=== PATIENT | male | born 1975 | race Caucasian/White ===

== ENCOUNTER 2017-05-07 19:18 | Emergency (ER) | payer OTHER ==
[~2017-05-07] VITALS: Ht 180.3 cm; Wt 90.7 kg
[~2017-05-07 19:18] MED LIST: AUGMENTIN 875875 MG PO; BENADRYL ALLERG25 MG PO; CELEXA40 MG PO; CHANTIX0.5 MG PO; CIPROFLOXACIN500 M1 PO; CLINDAMYCIN HC150 MG PO; DEXAMETHASONE 22 MG PO; DILAUDID 4 MG TA4 M1 PO; DOXYCYCLINE 10100 M2 PO; DOXYCYCLINE HY100 M3 PO; ENBREL 25 MG KI25 M1 SUBQ; FLEXERIL PO; FLONASE16 GM; FOLIC ACID0.8 MG PO; FOSAMAX 70 MG T70 MG PO; IBUPROFEN 600600 M1 PO; IBUPROFEN 800800 MG PO; KEFLEX500 MG PO; LEXAPRO 10 MG T10 M2 PO; LISINOPRIL10 MG PO; MEN'S MULTI-VI1 EACH PO; METHOTREXATE 22.5 M1 PO; NAPROSYN500 MG PO; NEXIUM20 MG; NORCO 10-325 T1 EACH PO; NORCO 5-325 TA1 EACH PO; OMEGA 3 1,0001 EACH PO; PERCOCET 5-3251 EACH PO; PHENERGAN 25 MG25 M1 PO; PRILOSEC40 MG PO; REMICADE 1100 MG/VIA IV; SEROQUEL 100 M100 M1 PO; SEROQUEL200 MG PO; TYLENOL325 MG PO; VALIUM5 MG PO; VENTOLIN HFA 1818 GM INH; VITAMIN D5000 UNIT PO; XANAX 0.5 MG0.5 M1 PO; XANAX 0.5 MG0.5 MG PO; ZESTRIL10 MG PO; ZOFRAN ODT4 MG PO; ZPAK PO
[2017-05-07] MEDS ORDERED: AUGMENTIN 875-1 EACH PO (19:49)
[2017-05-07] MEDS ORDERED: MOBIC7.5 MG PO (19:49)
== END 2017-05-07 20:10 | disposition home or self-care (01) ==
LOC: ER 19:18
DX: S81.802A Unspecified open wound, left lower leg, initial encounter (principal); L40.50 Arthropathic psoriasis, unspecified; I10 Essential (primary) hypertension; G43.909 Migraine, unspecified, not intractable, without status migrainosus; F41.9 Anxiety disorder, unspecified; F17.210 Nicotine dependence, cigarettes, uncomplicated; Z86.14 Personal history of Methicillin resistant Staphylococcus aureus infection; Z88.8 Allergy status to other drugs, medicaments and biological substances; W54.0XXA Bitten by dog, initial encounter; Y93.89 Activity, other specified; Y92.89 Other specified places as the place of occurrence of the external cause; Y99.8 Other external cause status

== ENCOUNTER → 2017-11-03 | Outpatient (CLI) | payer OTHER ==
[~2017-11-03] MED LIST changes: +AMLODIPINE BESY10 MG PO; +AUGMENTIN 875-1 EACH PO; +BENTYL 10 MG CA10 M1 PO; +MOBIC7.5 MG PO; +PREDNISONE 10 M10 MG PO; +SEROQUEL 50 MG50 M1 PO; +TREMFYA100 MG/1 M SUBQ
== END ==
LOC: NUC 09:06
DX: M85.88 Other specified disorders of bone density and structure, other site (principal); Z79.52 Long term (current) use of systemic steroids

== ENCOUNTER 2018-10-30 06:40 | Inpatient (IN) | payer OTHER ==
[~2018-10-30] VITALS: Ht 180.3 cm; Wt 97.5 kg
[2018-10-30 06:40] VITALS: BP 135/95
[2018-10-30] MEDS ORDERED: DUPIXENT300 MG/2 M (06:54)
[2018-10-30 07:17] LABS: HEMATOCRIT 41.8 % (42.0-52.0); HEMOGLOBIN 14.2 gm/dL (14.0-18.0); MCH 31.7 pg (26.0-34.0); MCV 93.2 fL (80.0-100.0); PLATELET COUNT 237 thou/uL (150-400); RBC 4.49 mil/uL (4.50-6.00); RDW 14.1 % (10.5-14.5); WBC 14.9 thou/uL (4.0-11.0)
[2018-10-30 07:24] LABS: ANION GAP 11 mmol/L (7-16); BUN 17 mg/dL (7-18); CALCIUM 8.7 mg/dL (8.5-10.1); CHLORIDE 102 mmol/L (98-107); CO2 26 mmol/L (21-32); CREATININE 1.2 mg/dL (0.7-1.3); GLUCOSE 86 mg/dL (74-106); SODIUM 139 mmol/L (136-145)
[2018-10-30 07:31] LABS: PROTIME 9.3 Seconds (9.3-11.4); TROPONIN-I <0.06 ng/mL (<0.06)
[2018-10-30 07:33] LABS: APTT 20.5 Seconds (24.5-32.8)
[2018-10-30 08:00] LABS: ABSOLUTE NEUTROPHILS 12.8 thou/uL (1.4-8.2)
[2018-10-30 09:59] LABS: AMP/METHAMP Negative (Negative); BARBITURATES Negative (Negative); BENZODIAZEPINES POSITIVE (Negative); COCAINE Negative (Negative); METHADONE Negative (Negative); OPIATES Negative (Negative); PCP Negative (Negative)
[2018-10-30 10:43] VITALS: BP 132/89
[2018-10-30 11:25] VITALS: BP 139/97
[2018-10-30 12:08] LABS: ALBUMIN 3.7 g/dL (3.4-5.0); DIRECT BILIRUBIN < 0.1 mg/dL (<0.1-0.3); SGOT 16 U/L (15-37); SGPT 24 U/L (30-65); TOTAL BILIRUBIN < 0.1 mg/dL (<0.1-1.0); TOTAL PROTEIN 7.2 g/dL (6.4-8.2)
--- NOTE | 2018-10-30 14:32 | NUR ---
PT ARRIVED TO UNIT, POST EGD, AT APPROX 1320. AT APPROX 1400 PT HAD DISCONNECTED HIMSELF FROM IV MED, VITALS MACHINE AND WAS FULLY DRESSED. CHARGE NURSE MAGGIE AND I WENT INTO ROOM AND PT STATED HE WAS GOING TO HAVE A SMOKE. WE TOLD PT HE COULD HAVE A NICOTINE PATCH, BUT HOSPITAL HAD NO SMOKING POLICY. I ASKED PT TO GO BACK TO BED AND I TOLD HIM HE CAN NOT DISCONNECT HIMSELF FROM IV MED DUE TO INFECTION RISK (TUBING OPEN AND ON BED) AND MEDICATION NEEDS TO BE INFUSED FOR BENIFIT. PT STATED THAT THE IV MED, PROTONICS NEVER WORKED FOR HIM BEFORE. PREVIOUSLY PT HAD BEEN DISPLAYING SIMILAR BEHAVIOR IN EMERGENCY ROOM REPORTED BY CINTIA CAMACHO. I LEFT THE ROOM AND CALLED SECURITY FOR ASSISTANCE (STAND BY ONLY) AND I DISCUSSED WITH MR DIAL, HIS PT RESPONSIBILITIES. I INFORMED PT THAT THE HOSPITAL (AND SURROUNDING CAMP[facility]) HAS A NO SMOKING POLICY. I ASKED MR DIAL IF HE WOULD TRUST US AND LET US TREAT HIM. I OFFERED THAT HE COULD TALK TO THE ATTENDING PHYSICIAN ABOUT HIS TREATMENT PLAN. I TOLD HIM THAT IF HE LEFT IT WOULD BE AGAINST MEDICAL ADVICE. I ALSO LET HIM KNOW THAT I COULD CONTACT CASE MANAGEMENT IF HE HAD PROBLEMS AT HOME. I GAVE THE PATIENT SOME TIME TO THINK (ABOUT 15 MINS) AND WENT BACK TO HIS ROOM. HE WAS GETTING DRESSED AND DECIDED TO LEAVE. HE WILLINGLY SIGNED AMA PAPERWORK. HE STATED THAT HE NEEDED TO TAKE CARE OF HIS DOG. DR. BAUTISTA, RONNIE ZAMORA, BHASKAR PRATT NOTIFIED. PT LEFT UNIT AT APPROX 1445.
--- NOTE | 2018-10-30 15:02 | NUR ---
ORDERS RECEIVED FOR EVAL AND TREAT HOWEVER Pt LEFT THE HOSPITAL PRIOR TO BEING SEEN
[2018-10-30] MEDS ORDERED: CARAFATE 1 GM TA1 GM PO (16:55)
[2018-10-30] MEDS ORDERED: HYDROCODONE-ACE15 ML PO (16:55)
[2018-10-30] MEDS ORDERED: SENNA-DOCUSATE1 EAC1 PO (16:55)
[2018-10-30] MEDS ORDERED: ZOFRAN ODT4 MG PO (16:55)
[2018-10-30] MEDS ORDERED: PROTONIX40 MG PO (16:55)
--- NOTE | 2018-10-30 17:04 | EKG ---
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: ALEX : 1975 Requested By: Gustavo Iglesias Order Number: [id number] MD: Deshaun Alan Measurements Intervals Jean Rate: 87 P: 9 WA: 145 QRS: 7 QRSD: 84 T: 22 QT: 363 QTc: 437 Interpretive Statements Sinus rhythm No significant abnormality Compared to ECG 07/26/2014 13:18:24 Sinus tachycardia no longer present Electronically Signed On 10-30-2018 17:04:08 CDT by Deshaun Alan [email or web address] ��������������������������������������������� <ELECTRONICALLY SIGNED> ���������������������������������������� By: Deshaun Alan MD, [facility] ��������������������������������������������� 10/30/18 1704 0647 Deshaun Alan MD, FAC /EPI
--- NOTE | 2018-11-02 10:06 | PATH ---
[facility] [place] [address] PATHOLOGY RPT PROCEDURE Name: JESSEANDREWSHECTOR MASON Room #: 211-P DIS IN M.R.#: [id number] ������������������ Admission: 10/30/18 ������������������ Date of : 75 Discharge: 10/30/18 Report #: [id number] Path Case #: [id number] [facility] Accession Number: [id number] . 01 Material submitted: . ANTRUM BIOPSIES R/O H PYLORI . 01 Clinical history: . Pre-OP DX: Melena, coffee-ground emesis Post-OP DX: Hiatal hernia, gastritis, esophagitis . 02 Diagnosis: Gastric mucosa, antrum rule out H. pylori, endoscopic biopsy: - Mild to moderate reactive gastropathy. - Negative for intestinal metaplasia. - Negative for Helicobacter pylori (properly controlled immunohistochemical stain performed). (IUV:dori; 10/31/2018) MBR/10/31/2018 . 02 Electronically signed: . Jeanie Camacho MD, Pathologist NPI- [id number] . 01 Gross description: . Received in formalin labeled "Hector Dial, antrum biopsies, rule out H. pylori," is a single segment of sin soft tissue measuring 0.6 cm in maximum dimension. The specimen is entirely submitted in cassette A1. After filtration of the specimen container, no additional tissue was recovered. (TSD; 10/30/2018) TOB/TOB . 02 Pathologist provided ICD-10: K31.9 . 02 CPT . 573071, T47441 Specimen Comment: A courtesy copy of this report has been sent to Specimen Comment: [phone], . Specimen Comment: Report sent to / DR BAUTISTA Specimen Comment: A duplicate report has been generated due to demographic updates. Performed at: [address], [place], [place] [id number] MD Amandeep Lawson MD Phone: [phone] [address] [address] PATHOLOGY RPT PROCEDURE Name: HECTOR DIAL MASON Room #: 211-P DIS IN M.R.#: [id number] ������������������ Admission: 10/30/18 ������������������ Date of : 75 Discharge: 10/30/18 Report #: [id number] Path Case #: [id number] Performed at: [address] [facility] [address] [id number] MD Jeanie Camacho MD Phone: [phone]
== END 2018-10-30 17:48 | disposition left against medical advice (07) | DRG 382 ==
LOC: ER 06:40 → EROBS 09:20 → 2N 12:22
PROVIDERS: Emergency Medicine; Nurse Practitioner; ADMIT Internal Medicine
PROC: 0DB68ZX Excision of Stomach, Via Natural or Artificial Opening Endoscopic, Diagnostic (ICD-10-PCS; principal; 2018-10-30)
DX: K22.11 Ulcer of esophagus with bleeding (principal); K29.71 Gastritis, unspecified, with bleeding; I10 Essential (primary) hypertension; F17.210 Nicotine dependence, cigarettes, uncomplicated; K21.0 Gastro-esophageal reflux disease with esophagitis; K44.9 Diaphragmatic hernia without obstruction or gangrene; D72.829 Elevated white blood cell count, unspecified; F41.9 Anxiety disorder, unspecified; Z53.21 Procedure and treatment not carried out due to patient leaving prior to being seen by health care provider; F19.10 Other psychoactive substance abuse, uncomplicated; G43.909 Migraine, unspecified, not intractable, without status migrainosus; L40.50 Arthropathic psoriasis, unspecified; M19.90 Unspecified osteoarthritis, unspecified site; Z86.14 Personal history of Methicillin resistant Staphylococcus aureus infection; Z88.8 Allergy status to other drugs, medicaments and biological substances
CPT/HCPCS: 10081; 62110; 62900; 70005

== ENCOUNTER 2018-10-30 14:40 | Emergency (ER) | payer OTHER ==
[~2018-10-30] VITALS: Ht 180.3 cm; Wt 97.5 kg
[~2018-10-30 14:40] MED LIST changes: +DUPIXENT300 MG/2 M
[2018-10-30 16:04] VITALS: BP 126/69
[2018-10-30 16:16] LABS: HEMATOCRIT 40.3 % (42.0-52.0); HEMOGLOBIN 13.5 gm/dL (14.0-18.0); MCH 31.4 pg (26.0-34.0); MCHC 33.5 g/dL (28.0-37.0); MCV 93.7 fL (80.0-100.0); RBC 4.3 mil/uL (4.50-6.00); RDW 14.3 % (10.5-14.5); WBC 10.7 thou/uL (4.0-11.0)
[2018-10-30] MEDS ORDERED: ZOFRAN ODT4 MG PO (16:55)
[2018-10-30] MEDS ORDERED: SENNA-DOCUSATE1 EAC1 PO (16:55)
[2018-10-30] MEDS ORDERED: PROTONIX40 MG PO (16:55)
[2018-10-30] MEDS ORDERED: CARAFATE 1 GM TA1 GM PO (16:55)
[2018-10-30] MEDS ORDERED: HYDROCODONE-ACE15 ML PO (16:55)
== END 2018-10-30 17:01 | disposition home or self-care (01) ==
LOC: ER 14:40
PROVIDERS: Emergency Medicine
DX: K29.70 Gastritis, unspecified, without bleeding (principal); K29.80 Duodenitis without bleeding; I10 Essential (primary) hypertension; G43.909 Migraine, unspecified, not intractable, without status migrainosus; F41.9 Anxiety disorder, unspecified; K74.60 Unspecified cirrhosis of liver; F17.210 Nicotine dependence, cigarettes, uncomplicated; Z86.14 Personal history of Methicillin resistant Staphylococcus aureus infection; Z88.8 Allergy status to other drugs, medicaments and biological substances

== ENCOUNTER → 2018-11-21 | Outpatient (CLI) | payer OTHER ==
[~2018-11-21] MED LIST changes: +CARAFATE 1 GM TA1 GM PO; +HYDROCODONE-ACE15 ML PO; +PROTONIX40 MG PO; +SENNA-DOCUSATE1 EAC1 PO
--- NOTE | 2018-11-21 16:43 | 2DMMODE ---
[facility] [address] [place] [address] 2 D/M-MODE ECHOCARDIOGRAM Name: HECTOR DIAL Room #: REG [facility]#: [id number] ������������� Admission: 11/21/18 ������������� Attend Phys: Xavi Barraza Discharge: ��� ������������� ��� Date of : 75 Date of Service: 11/21/18 1643 �� Report #: [id number] �������� ��������������������������������������������[id number] THIS REPORT FOR: //name// APPROVED REPORT Study performed: 11/21/2018 10:59:54 EXAM: Comprehensive 2D, Doppler, and color-flow Echocardiogram Patient Location: Out-Patient Room #: Echo lab 2 Status: routine BSA: 2.18 HR: 79 bpm BP: 118/80 mmHg Rhythm: NSR Other Information Study Quality: Good Indications Hypertension/HDD HLP. 2D Dimensions RVDd: 37.96 mm IVSd: 10.10 (7-11mm) LVOT Diam: 26.89 (18-24mm) LVDd: 54.96 mm PWd: 9.57 (7-11mm) Ascending Ao: 34.01 (22-36mm) LVDs: 36.84 (25-40mm) Aortic Root: 37.60 mm IVC: 10.00 mm Volumes Left Atrial Volume (Systole) Single Plane 4CH: 50.76 mL Single Plane 2CH: 45.78 mL LA ESV Index: 25.00 mL/m2 Aortic Valve AoV Peak Jayant.: 1.06 m/s AO Peak Gr.: 4.50 mmHg LVOT Max P.14 mmHg LVOT Max V: 1.02 m/s JETHRO Vmax: 5.45 cm2 Mitral Valve E/A Ratio: 1.4 MV Decel. Time: 210.78 ms [facility] [address] [place] [address] 2 D/M-MODE ECHOCARDIOGRAM Name: HECTOR DIAL Room #: REG [facility]#: [id number] ������������� Admission: 11/21/18 ������������� Attend Phys: Xavi Barraza Discharge: ��� ������������� ��� Date of : 75 Date of Service: 11/21/18 1643 �� Report #: [id number] �������� ��������������������������������������������[id number] MV E Max Jayant.: 0.62 m/s MV A Jayant.: 0.45 m/s MV PHT: 61.13 ms IVRT: 92.27 ms Pulmonary Valve PV Peak Jayant.: 1.04 m/s PV Peak Gr.: 4.34 mmHg Pulmonary Vein P Vein S: 0.36 m/s P Vein A: 0.26 m/s P Vein D: 0.50 m/s P Vein A Dur.: 115.3 msec P Vein S/D Ratio: 0.72 Tricuspid Valve TR Peak Jayant.: 2.53 m/s TR Peak Gr.: 25.68 mmHg PA Pressure: 30.00 mmHg Left Ventricle The left ventricle is normal size. There is normal LV segmental wall motion. There is normal left ventricular wall thickness. Left ventricular systolic function is normal. The left ventricular ejection fraction is within the normal range. LVEF is 55-60%. The left ventricular diastolic function is normal. Right Ventricle The right ventricle is normal size. The right ventricular systolic function is normal. Atria The left atrium size is normal. Right atrium is dilated. Aortic Valve The aortic valve is normal in structure. No aortic regurgitation is present. There is no aortic valvular stenosis. Mitral Valve The mitral valve is normal in structure. There is no mitral valve regurgitation noted. No evidence of mitral valve stenosis. Tricuspid Valve The tricuspid valve is normal in structure. There is trace to mild tricuspid regurgitation. Estimated PAP 30 mmHg. There is no pulmonary hypertension. Pulmonic Valve [address] [address] 2 D/M-MODE ECHOCARDIOGRAM Name: HECTOR DIAL Room #: REG [facility]#: [id number] ������������� Admission: 11/21/18 ������������� Attend Phys: Xavi Barraza Discharge: ��� ������������� ��� Date of : 75 Date of Service: 11/21/18 1643 �� Report #: [id number] �������� ��������������������������������������������[id number] The pulmonary valve is normal in structure. There is no pulmonic valvular regurgitation. Great Vessels The aortic root is normal in size. IVC is normal in size and collapses >50% with inspiration. Pericardium There is no pericardial effusion. <Conclusion> The left ventricle is normal size. LVEF is 55-60%. The aortic valve is normal in structure. The mitral valve is normal in structure. The tricuspid valve is normal in structure. There is trace to mild tricuspid regurgitation. Estimated PAP 30 mmHg. There is no pulmonary hypertension. The pulmonary valve is normal in structure. There is no pericardial effusion. ��������������������������������������������� <ELECTRONICALLY SIGNED> ���������������������������������������� By: Xavi Kelley MD ��������������������������������������������� 11/21/18 1643 1643 1643 Xavi Kelley MD /INF
== END ==
LOC: CV 10:47
DX: I10 Essential (primary) hypertension (principal); E78.5 Hyperlipidemia, unspecified; Z87.898 Personal history of other specified conditions; Z87.891 Personal history of nicotine dependence

== ENCOUNTER 2019-08-03 13:18 | Emergency (ER) | payer OTHER ==
[~2019-08-03] VITALS: Ht 182.9 cm; Wt 95.3 kg
[2019-08-03 15:25] VITALS: BP 125/71
--- NOTE | 2019-08-06 15:53 | EKG ---
[address] [address] ELECTROCARDIOGRAM REPORT Name: JAYROHECTOR CUEVAS [id number] Admission: 08/03/19 Attend Phys: Discharge: 08/03/19 Date of : 75 Report #: [id number] THIS REPORT FOR: //name// [facility] ED Test Date: 2019-08-03 Test Time: 13:51:04 Pat Name: HECTOR DIAL Department: Room: Gender: Bilingual Speech Language Pathologist: Ric : 1975 Requested By: Bennett Wolff Order Number: [id number] MD: Bryan Stanley Measurements Intervals [place] Rate: 81 P: 22 OR: 155 QRS: 2 QRSD: 92 T: 19 QT: 370 QTc: 430 Interpretive Statements Sinus rhythm Compared to ECG 10/30/2018 06:47:30 No significant changes Electronically Signed On 08-06-2019 15:53:19 CAN DOFFER by Bryan Stanley [email or web address] <ELECTRONICALLY SIGNED> By: Bryan Stanley MD 08/06/19 1553 1351 1351 Bryan Stanley MD /LINDA
== END 2019-08-03 15:25 | disposition home or self-care (01) ==
LOC: ER 13:18
DX: G43.909 Migraine, unspecified, not intractable, without status migrainosus (principal); I10 Essential (primary) hypertension; F41.9 Anxiety disorder, unspecified; F17.210 Nicotine dependence, cigarettes, uncomplicated; Z86.14 Personal history of Methicillin resistant Staphylococcus aureus infection

== ENCOUNTER → 2019-09-05 | Outpatient (CLI) | payer OTHER | LOC: HYPER 08:44 | DX: S81.812A Laceration without foreign body, left lower leg, initial encounter (principal); L40.9 Psoriasis, unspecified; H26.9 Unspecified cataract; E78.5 Hyperlipidemia, unspecified; I10 Essential (primary) hypertension; Z79.52 Long term (current) use of systemic steroids; W45.8XXA Other foreign body or object entering through skin, initial encounter; Y93.89 Activity, other specified; Y92.096 Garden or yard of other non-institutional residence as the place of occurrence of the external cause; Y99.8 Other external cause status ==

== ENCOUNTER → 2019-09-12 | Outpatient (CLI) | payer OTHER | LOC: HYPER 09:39 | DX: S81.812D Laceration without foreign body, left lower leg, subsequent encounter (principal); L40.9 Psoriasis, unspecified; E78.5 Hyperlipidemia, unspecified; I10 Essential (primary) hypertension; K21.9 Gastro-esophageal reflux disease without esophagitis; F17.200 Nicotine dependence, unspecified, uncomplicated; Z79.52 Long term (current) use of systemic steroids; W46.0XXD Contact with hypodermic needle, subsequent encounter ==

== ENCOUNTER 2020-01-19 09:46 | Emergency (ER) | payer OTHER ==
[~2020-01-19] VITALS: Ht 180.3 cm; Wt 99.8 kg
[2020-01-19 09:48] VITALS: BP 145/100
[2020-01-19] MEDS ORDERED: ROSUVASTATIN CA20 MG PO (10:18)
[2020-01-19] MEDS ORDERED: HYDROXYZINE HCL50 MG PO (10:22)
--- NOTE | 2020-01-21 08:39 | EKG ---
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[facility] 1975 Requested By: Dionicio Larios Order Number: [id number] MD: Deshaun Alan Measurements Intervals [place] Rate: 90 P: 11 MN: 140 QRS: 15 QRSD: 89 T: 28 QT: 353 QTc: 432 Interpretive Statements Sinus rhythm Normal tracing Compared to ECG 08/03/2019 13:51:04 No significant changes Electronically Signed On 01-21-2020 8:37:01 CDT by Deshaun Alan [email or web address] <ELECTRONICALLY SIGNED> By: Deshaun Alan MD, [facility] 01/21/2037 00 00 Deshaun Alan MD, [facility] /EPI
== END 2020-01-19 10:42 | disposition home or self-care (01) ==
LOC: ER 09:46
DX: M53.3 Sacrococcygeal disorders, not elsewhere classified (principal); I10 Essential (primary) hypertension; G43.909 Migraine, unspecified, not intractable, without status migrainosus; F17.210 Nicotine dependence, cigarettes, uncomplicated; Z79.899 Other long term (current) drug therapy; W18.30XA Fall on same level, unspecified, initial encounter; Y93.89 Activity, other specified; Y92.89 Other specified places as the place of occurrence of the external cause; Y99.9 Unspecified external cause status

== ENCOUNTER 2020-10-09 14:56 | Inpatient (IN) | payer OTHER ==
[~2020-10-09] VITALS: Ht 180.3 cm; Wt 104.0 kg
[~2020-10-09 14:56] MED LIST changes: +HYDROXYZINE HCL50 MG PO; +ROSUVASTATIN CA20 MG PO
[2020-10-09 14:58] VITALS: BP 117/84
[2020-10-09 16:19] LABS: HEMATOCRIT 50.2 % (42.0-52.0); HEMOGLOBIN 16.8 gm/dL (14.0-18.0); MCH 30.9 pg (26.0-34.0); MCHC 33.5 g/dL (28.0-37.0); MCV 92.1 fL (80.0-100.0); PLATELET COUNT 382 thou/uL (150-400); RBC 5.45 mil/uL (4.50-6.00); RDW 13.2 % (10.5-14.5); WBC 18.3 thou/uL (4.0-11.0)
[2020-10-09 16:37] LABS: ANION GAP 13 mmol/L (7-16); BUN 17 mg/dL (7-18); CALCIUM 10.3 mg/dL (8.5-10.1); CHLORIDE 99 mmol/L (98-107); CO2 30 mmol/L (21-32); CREATININE 1.4 mg/dL (0.7-1.3); GLUCOSE 110 mg/dL (74-106); POTASSIUM 4.1 mmol/L (3.5-5.1); SODIUM 142 mmol/L (136-145)
[2020-10-09 16:42] LABS: ALBUMIN 4.4 g/dL (3.4-5.0); LIPASE 88 U/L (73-393); SGOT 56 U/L (15-37); SGPT 74 U/L (16-63); TOTAL BILIRUBIN 0.6 mg/dL (0.2-1.0); TOTAL PROTEIN 8.4 g/dL (6.4-8.2)
[2020-10-09] MEDS ORDERED: SKYRIZI75 MG/0.83 SUBQ (17:00)
[2020-10-09 18:42] LABS: GGTP < 7 U/L (15-85)
[2020-10-09 23:18] VITALS: BP 149/91
[2020-10-09 23:31] VITALS: BP 146/92
[2020-10-09 23:56] VITALS: BP 151/102
[2020-10-10] MEDS ORDERED: RECLAST 55 MG/100 M IV (00:41)
--- NOTE | 2020-10-10 01:00 | NUR ---
admitted from ed around 2350, awake, alert and oriented, makes needs known, st on the tele, c/o abdominal pain and nausea, vomitedx1, nausea and pain medicine given with some relief, c/o chest discomfort states probably from throwing up alot, admission asessment and history completed and as charted, iv fluids infusing, remains npo after midnight, gi consult, will continue to monitor and follow poc, no needs at this time
[2020-10-10 03:54] VITALS: BP 120/82
[2020-10-10 04:09] LABS: HEMATOCRIT 42.8 % (42.0-52.0); MCH 30.8 pg (26.0-34.0); MCHC 33.1 g/dL (28.0-37.0); MCV 93.1 fL (80.0-100.0); RBC 4.6 mil/uL (4.50-6.00); RDW 13.1 % (10.5-14.5); WBC 11.9 thou/uL (4.0-11.0)
[2020-10-10 04:12] LABS: CALCIUM 8.6 mg/dL (8.5-10.1); CREATININE 1.4 mg/dL (0.7-1.3)
[2020-10-10 04:15] LABS: POTASSIUM 2.9 mmol/L (3.5-5.1)
[2020-10-10 04:20] LABS: HEMOGLOBIN 14.2 gm/dL (14.0-18.0)
--- NOTE | 2020-10-10 07:12 | EKG ---
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: JCHAILALA : 1975 Requested By: Kevin Sanchez Order Number: [id number] MD: Arben Akhtar Measurements Intervals [place] Rate: 125 P: 43 WA: 133 QRS: 38 QRSD: 84 T: 9 QT: 331 QTc: 478 Interpretive Statements Sinus tachycardia Ventricular premature complex Aberrant complex Borderline T wave abnormalities Borderline prolonged QT interval Compared to ECG 01/19/2020 10:01:42 Ventricular premature complex(es) now present Aberrant conduction of supraventricular beat(s) now present T-wave abnormality now present Sinus rhythm no longer present Electronically Signed On 10-10-2020 7:12:18 OPERATIONS SUPPORT ANALYST by Arben Akhtar [email or web address] <ELECTRONICALLY SIGNED> By: Arben Akhtar MD, FAC 10/10/20 0712 1514 1514 Arben Akhtar MD, [facility] /EPI
[2020-10-10 09:29] VITALS: BP 122/73
[2020-10-10 12:00] VITALS: BP 123/81
[2020-10-10 16:00] VITALS: BP 131/98
--- NOTE | 2020-10-10 16:01 | NUR ---
ASSESSMENT: CM REVIEWED CHART AND SPOKE WITH PATIENT. PT WAS ADMITTED DUE TO ABDOMINAL PAIN AND NAUSEA. PT IS CURRENTLY ON IV ANBX AND CLEAR LIQUIDS AND GI IS FOLLOWING. PT REPORTS HE IS SERPERATED FROM HIS CURRENTLY AND IS LIVING IN A TOWNHOME WITH ROOMATES. PT REPORTS ABOUT 10 STEPS WITH HANDRAILS TO ENTER AND ABOUT 14 STEPS ONCE INSIDE. PT REPORTS THAT HE IS NORMALLY FULLY INDEPENDENT WITH ALDS AND AMBULATION AND HAS NO DME. PT REPORTS HIS PCP IS DR. NICOLLE MARES. PT DENIES HAVING HH OR SNF IN THE PAST. PT IS HOPEFUL TO RETURN HOME AT DISCHARGE AND DOES NOT ANTICIPATE HAVING ANY NEEDS. CM WILL FOLLOW.
[2020-10-10 19:17] VITALS: BP 137/77
--- NOTE | 2020-10-10 20:15 | NUR ---
RECEIVED PT'S CARE AROUND 0720; PT. ON BED; ALERT; SR ON THE MONITOR; DURING AM ASSESSMENT C/O ABDOMINAL PAIN; AM MEDICATIONS GIVEN; REQUESTED GI COCTEL; NPO; GI PHYSICIAN NOTIFIED; ORDERS ON PLACED; PER GI DIET ADVANCE TO CLEAR LIQUID; THROUGH THE DAY NO C/O NAUSEA OR VOMITING; TOLERATED WELL MEALS; POTASSIUM REASSSESSED; 3.1; PHYSICIAN NOTIFIED THROUGH [employer] TEXT AND ROUNDING; ST. "WILL REPLACED"; NO ORDERS ON EMAR; FLUIDS RATE CHANGED TO 100 ML/H; CIWA PROTOCOL ON EMAR; PT. ST. FEELING SOME ANXIETY DURING THE AFTERNOON; PRN MEDICATION GIVEN; ASSESSMENT CHARGED; FOLLOWING POC; PASSED ON REPORT;
[2020-10-11 04:20] VITALS: BP 104/65
[2020-10-11 07:05] VITALS: BP 133/79
--- NOTE | 2020-10-11 08:07 | NUR ---
ASSUME CARE 1900. PT/VITALS STABLE. DENIES ANY APIN/N/V. NO DIARRHEA NOTED. SR ON MONITOR. GOOD ENDURANCE TO ACTIVITY. PT IS INDEPENDENT. NO DISTRESS NOTED THROUGH THE NIGHT. CIWA AT 7. ADEQUATE REST NOTED. PLAN IS TO CONTINUE TO TREAT WITH ABX AND RELACE MINERALS AND ELECTROLYTES. WILL CONTINUE TO MONITOR AND FOLLOW WITH POC
[2020-10-11 12:30] VITALS: BP 123/80
== END 2020-10-11 14:52 | disposition home or self-care (01) | DRG 391 ==
LOC: ER 14:56 → EROBS 18:39 → 2N 18:39
PROVIDERS: Emergency Medicine; Nurse Practitioner Family; ADMIT Internal Medicine; ATTEND Internal Medicine
DX: K52.9 Noninfective gastroenteritis and colitis, unspecified (principal); M72.6 Necrotizing fasciitis; K29.70 Gastritis, unspecified, without bleeding; K76.0 Fatty (change of) liver, not elsewhere classified; Z20.822 Contact with and (suspected) exposure to COVID-19; L40.50 Arthropathic psoriasis, unspecified; M81.0 Age-related osteoporosis without current pathological fracture; I10 Essential (primary) hypertension; F41.9 Anxiety disorder, unspecified; G43.909 Migraine, unspecified, not intractable, without status migrainosus; K21.9 Gastro-esophageal reflux disease without esophagitis; E78.5 Hyperlipidemia, unspecified; F17.210 Nicotine dependence, cigarettes, uncomplicated; F10.10 Alcohol abuse, uncomplicated; K20.90 Esophagitis, unspecified without bleeding; K74.60 Unspecified cirrhosis of liver; Z86.14 Personal history of Methicillin resistant Staphylococcus aureus infection; Z71.6 Tobacco abuse counseling; Z53.29 Procedure and treatment not carried out because of patient's decision for other reasons
CPT/HCPCS: 10081